=== PATIENT | female | born 1940 | race Caucasian/White ===

== ENCOUNTER 2019-02-13 09:38 | Inpatient (IN) | payer OTHER ==
[~2019-02-13] VITALS: Ht 172.7 cm; Wt 73.5 kg
[2019-02-13] MEDS ORDERED: VASOTEC5 MG PO (14:04)
[2019-02-13] MEDS ORDERED: OXTELLAR XR300 MG PO (14:04)
[2019-02-13] MEDS ORDERED: OLANZAPINE15 M1 PO (14:05)
[2019-02-13] MEDS ORDERED: L-METHYLFOLATE1 EAC4 PO (14:06)
[2019-02-13] MEDS ORDERED: DESYREL150 MG PO (14:07)
[2019-02-13] MEDS ORDERED: LITHIUM CARBON150 MG PO (14:09)
[2019-02-13] MEDS ORDERED: FISH OIL 1,001000 M3 PO (14:10)
[2019-02-13] MEDS ORDERED: SLOW FE142 MG PO (14:10)
[2019-02-13] MEDS ORDERED: B-125000 MC1 PO (14:11)
[2019-02-13] MEDS ORDERED: CENTRUM SILVER1 EAC6 PO (14:12)
--- NOTE | 2019-02-13 14:44 | NUR ---
WHITE 78 YEAR OLD WHITE FEMALE ADMITTED FOR MANIC DEPRESSIVE BEHAVIORS. SHE HAS BEEN EXHIBITING RECKLESS BEHAVIORS, DRAMATIC MOOD CHANGES, DISTURBED SLEEP, LOCKED HER OUTSIDE THE HOUSE AND WOULD NOT LET HIM IN THE HOUSE, ON THE WAY TO THE HOSPITAL SHE THOUGHT SHE WAS AN ANIMAL AND STARTED CRYING, IN THE ED SHE STARTED MAKING RAINBOW AND FIGURE 8 MOTIONS WITH HER HANDS. SHE STARTED BACKING OUT OF THE DRIVEWAY IN THEIR CAR (HER AND HER 'S) IN THE CAR SHE NORMALLY DOES NOT DRIVE. HER PSYCHIATRIST CHANGED SEVERAL OF HER MEDICATIONS, BUT SHE CONTINUES TO DECOMPENSATE. SHE DOES STRUGGLE WITH SOME THOUGHT BLOCKING. SHE TRIED TO TAKE A SHOWER WITH HER CLOTING ON. IS SUPPORTIVE AND THEY HAVE BEEN OVER 30 YEARS. SHE STATES SHE HAD AN AND A TUBALIGATION IN 1980, A TONSELLECTOMY AT 8 Y/O, BREAST CANCER IN 2006 AND A LEFT BREAST REMOVAL. SHE HAS A PROSTHESIS FOR THIS. SHE STATES SHE HAS BEEN HOSPITALIZED AT LEAST 5 TIMES FOR MANIC DEPRESSION SINCE SHE WAS IN HER 20'S. SHE HAS A HISTORY OF HTN. SHE STATES SHE LIKES TO EAT GLUTEN FREE FOODS BUT DENIES SENSITIVITY TO THIS. SHE HAS AN ALLERGY TO AMPICILLIN. SHE STATES SHE HAS HAD THE FLU SHOT THIS YEAR ABOUT 1 OR 2 WEEKS AGO AND HAD THE PNEUMONIA SHOT A YEAR OR TWO AGO. SHE IS AMBULATORY AND CAN CARE FOR HERSELF. SHE DENIES A HISTORY OF FALLING. SHE DENIES RECENT LOSSES. HER FATHER HAD A HISTORY OF MENTAL ILLNESS AND WAS A PATIENT OF DR. ALCANTARA.
[2019-02-13 15:01] VITALS: BP 147/88
[2019-02-13 20:29] VITALS: BP 115/61
--- NOTE | 2019-02-14 03:24 | NUR ---
Care assumed of patient at 1915: Patient alert and oriented x4. Patient seated in day room with other peers at start of shift. Patient appears to be interacting well with staff and peers. Patient pleasant and cooperative. Patient presents with flat affect, appears sad. Patient denies pain or discomfort. Denies SI/HI/AH/VH. No s/s of delusional or paranoia behaviors. Patient ate 100% HS snack. Took HS medication whole without difficulty. Patient had one episode of bladder incontinence. Patient slept fairly well for a couple hours then was awake. Patient crying, anxious, mumbling words. Patient did state "I'm a failure". Patient reported that she couldn't sleep. Patient pacing around her room. Some bizarre behavior observed of patient putting linens on the floor and stepping around her room on the linens. Patient required re-direction due to fall risk. Nurse sat one on one with patient to speak with her but she was not able to calm down. LINCOLN Lopez, notified. Order obtained for Seroquel 25mg po 1x dose. Medication administered at 0107. Patient was able to fall asleep shortly thereafter and has been resting quietly since.
--- NOTE | 2019-02-14 07:30 | NUR ---
Assumed care of patient this am. Patient alert and oriented. Patient states that she needs her cell phone to be decoded, that hidden messages are inside. Vital signs stable, breath sounds clear, bowel sounds present, no visible wounds. Patient was in the mileu sitting at a table resting this am during the assessment. Patient has a good appetite and takes medications whole. Patient participated in group and exercised her legs playing kickball with the [employer] ball.
[2019-02-14 08:00] VITALS: BP 117/75
--- NOTE | 2019-02-14 09:03 | NUR ---
SW called and left a VM for spouse. This inlcuded information baout visiting hours, family meeting and information needed.
[2019-02-14 10:01] VITALS: BP 117/75
--- NOTE | 2019-02-14 11:41 | NUR ---
PT UP AD NOEMI AROUND THE [facility] UNIT. PT OBSERVED PERFORMING TXS IN ACTIVITY ROOM AND GAIT AROUND THE HALLS WITHOUT DIFFICULTY. RN CONFIRMS PT NOT CURRENTLY HAVING DIFFICULTY WITH MOBILITY. WILL DEFER P.T. EVAL AT THIS TIME PT APPEARS TO BE MOBILIZING AT BASELINE AND DOES NOT NECESSITATE THE SERVICES OF P.T. AT THIS TIME.
--- NOTE | 2019-02-14 13:22 | NUR ---
Assess due to nutrition screening risk identified for unintentional wt loss and decreased appetite. Admit to [facility] unit for psychosis, depression. Able to visit with pt this afternoon. States really enjoyed breakfast and able to provide food preferences. Feels she has lost 20 lb x yr=10%, but felt it was related to following the gluten free diet her was on. She does not want any diet restrictions while here and has a regular diet ordered. Will follow wt and intake trends during admission. On MVI, B12, and FeS04 supplementation. Low nutrition risk at this time
--- NOTE | 2019-02-14 15:31 | NUR ---
SW met with pt to complete the psycho social, and she described a 30 plus year struggle with mental illness. She has a supportive and understanding spouse. Pt is willing to be compliant wiht treatment and would like increased outpt therapy. Sw later met with pt and her spouse. he will come back for the fmaily meeting on Thu, and has some of his own medical concerns. Their daughter Marsha is a good resource to assist with d/c planning. Spouses cell phone [phone] is a btter number to get in touch with him.
--- NOTE | 2019-02-14 17:21 | EKG ---
[place] [address] [address] [place] [address] ELECTROCARDIOGRAM REPORT Name: ANTWON BUNCH Room #: [facility] ADM IN M.R.#: [id number] Admission: 02/13/19 Attend Phys: Mono Araujo DO Discharge: Date of : 44 Report #: [id number] THIS REPORT FOR: //name// [facility] Test Date: 2019-02-14 Test Time: 16:11:39 Pat Name: ANTWON BUNCH Department: Room: [facility] Gender: F Spinner Continuous: Adry MONTOYA : 1940 Requested By: Anne Giraldo Order Number: [id number] MD: Avel Isabel Measurements Intervals [place] Rate: 59 P: 61 [place]: 175 QRS: -53 QRSD: 141 T: 2 QT: 472 QTc: 468 Interpretive Statements Sinus rhythm RBBB and LAFB Left ventricular hypertrophy No previous ECG available for comparison Electronically Signed On 02-14-2019 17:21:27 CDT by Avel Isabel [email or web address] <ELECTRONICALLY SIGNED> By: Avel Isabel MD, [facility] 02/14/19 1721 10 10 Avel Isabel MD, FACC /EPI
[2019-02-14 20:27] VITALS: BP 121/76
--- NOTE | 2019-02-14 23:13 | NUR ---
Care assumed of patient at 1915: Patient sitting in day room at start of shift. Interacting well with staff and peers. Patient alert and oriented x4, pleasant and cooperative. Patient ate 100% HS snack. Took HS medication whole without difficulty. As peers started to go to bed, patient became more anxious. Patient impulsive and restless. Patient holding her arms out trying to make circles. Patient attempting to hug others and required re-direction on personal boundaries. Patient would lay in bed and appear to be resting then would quickly walk down the jean to the exit doors. Patient got out of bed once and walked up close to nurse stating "I can't". Upon asking patient what she couldn't do, she stated "my body won't stop moving". Patient was seated at one point in the day room, moving her arms in circles, breathing heavily, appeared anxious. Then patient stopped, looked at nurse and stated "I don't like this show" referring to the TV that was on. Patient has mentioned wanting her cell phone x1 so she could "de-code" messages that were sent to her. Patient provided busy tasks when she focuses on this, which has been effective. Patient denies SI/HI/AH/VH. Patient continues to be restless and fixated on different subjects. Labile, expansive. Patient was provided Seroquel PRN for insomnia.
[2019-02-15 09:08] VITALS: BP 138/80
--- NOTE | 2019-02-15 09:46 | NUR ---
0715: Report rec from noc shift, care assumed. [id number]: Ambulatory independently in room, jean and to DR, gait weak, uses wall rail for assist. Feeds self, appetite good, taking liquids w/o difficulty. Takes meds whole w/o difficulty, meds reviewed with pt, pt paranoid towards staff, food and medications, paranoia improved with visiting with pt and reassurance. Attending 0900 therapy group, participation noted, cooperative with staff, no impulsive behavior observed at this time. Reports constipation, no results from MOM x2, will consult with hospitalist for tx regimen.
--- NOTE | 2019-02-16 00:03 | NUR ---
Pt sitting in day room watching tv, swinging arms and legs like scissors. Pt interacting with female peers. Pt was sleeping in bed with her head at the feet. Pt awakened when male peer was acting out. Pt came from her room to the jean where pt was, she had a foam noodle and was glaring at the nurse. Pt then gave the noodle to the male peer. Pt was redirected to keep the noodle and she did and walked into day room to sit at table. Security arrived on unit and pt was following security and stating to security that a nurse was drinking on the job. Pt wandered into a male peers room while staff was providing cares. Pt redirected to return to her room. Pt stated I am here to receive treatments. Pt has been pacing the jean from room to day room. Pt coming to nurses station asking if we have contacted the dr and finished our charting. Pt directed staff to remove a towel from her floor. Dr Araujo notified of restless and agitatied behaviors and new order obtained.
[2019-02-16 00:08] VITALS: BP 148/78
--- NOTE | 2019-02-16 04:14 | NUR ---
Pt frequently awakening coming to nurses station to stare at nurses with scowl and at times going into day room to sit with tech. Pt then returns to bed. Pt did sleep in elevated extra bed in room, bed was lowered to safe position. Pt has frequently been observed standing behind her bathroom door and she threw her paper trash sack into the jean.
[2019-02-16 06:21] LABS: CALCIUM 9.5 mg/dL (8.5-10.1); CREATININE 1.4 mg/dL (0.6-1.0); POTASSIUM 4.7 mmol/L (3.5-5.1)
[2019-02-16 08:00] VITALS: BP 159/91
--- NOTE | 2019-02-16 09:49 | NUR ---
Assumed care of patient this am. Patient in bed, sleeping. Patient denies pain. Patient assessment done at the bedside. Breath sounds clear, bowel sounds present. Vital signs stable. Patient adherent with medications. Patients affect sad. Patient ambulates without assistance.
[2019-02-16 11:17] VITALS: BP 159/91
[2019-02-16 20:08] VITALS: BP 142/71
--- NOTE | 2019-02-16 23:52 | NUR ---
Care assumed of patient at 1915: Patient alert and oriented x3 with occasional confusion noted. Patient pleasant and cooperative with nursing assessment. Denies pain or discomfort. Interacting well with staff and peers. Ate 100% HS snack. Took HS medication without difficulty. As other peers started to go to bed, patient became increasingly anxious. Patient intrusive, running up to the nurses station, talking loudly. Patient visualized standing in the doorway of her room, moaning, taking several deep breaths. When asked what was wrong, patient would state "I don't know". When asked to go back to bed, patient did so without concern. Patient ran up to the nurses station at one point and stated "I just remembered". Patient stated she needed the phone because she has to call Sheldon. She states that Sheldon brought her here and will be able to take her home tonight. Patient educated that transportation will be arranged once the doctor feels she is ready to be discharged. Patient said "OK" then walked briskly back to her room. Patient has been restless and has had difficulty falling asleep this evening. Patient visualized laying sideways and backwards in bed. Denies pain or discomfort. Primarily appears restless and anxious. Denies SI/HI/AH/VH. Bizarre thoughts and behaviors observed. Labile mood.
[2019-02-17 09:10] VITALS: BP 135/83
[2019-02-17 10:51] VITALS: BP 135/83
--- NOTE | 2019-02-17 11:06 | NUR ---
ASSUMED CARE AT 0700 TODAY. PT. UP, SHOWERED AND THEN CAME INTO THE DINING ROOM. SHE IS NEATLY DRESSED. SHE TOOK HER MEDICATIONS WITHOUT DIFFICULTY. SHE ATTENDED [id number] MEETING AND DID SOME PARTICAPATION. SHE THEN RETIRED TO HER ROOM COMING OUT OCCASIONALLY. AT THIS TIME SHE HAS A HOSPITAL GOWN ON IF IT WAS A HOUSECOAT. SHE APPEARD DEPRESSED THIS MORNING. SHE SPENT SOME TIME TALKING WITH NURSE AND IT SEEMED HER MOOD IMPROVED SOME.
[2019-02-17 19:52] VITALS: BP 154/80
--- NOTE | 2019-02-18 00:28 | NUR ---
Care assumed of patient at 1915: Patient resting in bed at start of shift. Patient pleasant and cooperative with assessment. Patient denies pain or discomfort. Declined HS snack. Took HS medication whole without difficulty. Denies SI/HI/AH/VH. No aggression or agitation observed. Alert and oriented x4. Patient had minimal bizarre behaviors/statements this shift. Patient did make a couple statements regarding her and contacting an "IT person" but quickly stopped herself. She stated "I know I'm not making sense". Patient did get out of bed quickly and make impulsive movements. It is believed to be that she just needed to use the bathroom. Patient has been resting quietly this shift.
--- NOTE | 2019-02-18 07:30 | NUR ---
Assumed care of patient this am. Patient in good spirits. Patient affect relaxed. Patient ambulates with out assistence. Patient adherent to scheduled medications. Patient takes medications whole. Patient denies pain. Patient is continent of bowel and bladder. Patient showered this am and put on a clean set of clothes.
[2019-02-18 08:00] VITALS: BP 134/77
[2019-02-18 08:28] VITALS: BP 134/77
[2019-02-18 12:34] LABS: CALCIUM 9.9 mg/dL (8.5-10.1); CREATININE 1.2 mg/dL (0.6-1.0); POTASSIUM 4.4 mmol/L (3.5-5.1)
--- NOTE | 2019-02-18 14:45 | NUR ---
Date of Admission: 02/13/19 Date of Activity Therapy Assessment: 02/16/19 Activity Goal: Manage anxiety symptoms Initial Goal: 2 Group activities/day Weekly progress towards goal: Achieving current goals Group participation level: Full Behaviors observed: Patient participates in every group offered to her. She presents in a serious demeanor and exhibits a moderate level of anxiety in which she verbalizes. Patient is able to request independent leisure tools to help cope with her anxiety and has done so during her stay so far. Plan: No change towards goal
[2019-02-18 20:44] VITALS: BP 145/85
--- NOTE | 2019-02-19 04:03 | NUR ---
ASSESSMENT: PT REMAIN ALERT AND ORIENT TIMES THREE. UP AD NOEMI WITH A STEADY GAIT. WAS TEARFUL AT TIMES ABOUT THINKING THAT ANOTHER PT WHO WAS SCREAMING AND CRYING OUT FOR LONG PERIODS OF TIMES WAS GOING TO BE HER ROOMMATE. ONCE PT FOUND OUT THAT THE OTHER PT WAS NOT GOING TO BE HER ROOM MATE, SHE SETTLED DOWN AND WENT TO SLEEP. DENIES PAIN, SOB AND N/V. TAKES MEDS WHOLE WITH WATER WITHOUT ISSUE. POSSIBLE DC ON THURSDAY OR THURSDAY BACK TO HOME WITH . GOOD PROGRESS, WILL CONTINUE TO MONITOR.
--- NOTE | 2019-02-19 08:57 | NUR ---
0715: Report rec from noc shift, care assumed.
[2019-02-19 20:00] VITALS: BP 123/64; BP 140/70
[2019-02-19 20:11] LABS: CALCIUM 9.9 mg/dL (8.5-10.1); CREATININE 1.5 mg/dL (0.6-1.0); POTASSIUM 4.3 mmol/L (3.5-5.1)
--- NOTE | 2019-02-19 23:34 | NUR ---
PT AMBULATING IN SHOOK, WALKING IN AND OUT OF ROOM AND DAY ROOM. GREEN AND TENSE AFFECT AT TIMES. PT COMPLIANT WTIH MEDICATION AND LAB DRAW. PT DECLINED SNACK. PT NOT ENGAGING IN CONVERSATION WITH STAFF, POOR EYE CONTACT.
--- NOTE | 2019-02-19 23:50 | NUR ---
Rich AMBROSIO CALLED RE LABS DRAWN AT 1900, NO RESULTS AT THIS TIME.
[2019-02-20 09:03] VITALS: BP 124/72
--- NOTE | 2019-02-20 11:48 | EKG ---
[place] [address] [facility] [place] [address] ELECTROCARDIOGRAM REPORT Name: ANTWON BUNCH Room #: [facility] ADM IN M.R.#: [id number] Admission: 02/13/19 Attend Phys: Mono Araujo DO Discharge: Date of : 44 Report #: [id number] THIS REPORT FOR: //name// [facility] Test Date: 2019-02-19 Test Time: 14:08:28 Pat Name: ANTWON BUNCH Department: Room: [facility] Gender: F Hospital Plan Administrator: NEENA : 1940 Requested By: Anne Giraldo Order Number: [id number] MD: Avel Isabel Measurements Intervals [place] Rate: 72 P: 37 [place]: 213 QRS: -56 QRSD: 140 T: 10 QT: 455 QTc: 499 Interpretive Statements Sinus rhythm with atrial prematurity his Borderline prolonged MO interval RBBB and LAFB Left ventricular hypertrophy Compared to ECG 02/14/2019 16:11:39 Atrial premature complexes now present Electronically Signed On 02-20-2019 11:48:37 CDT by Avel Isabel [email or web address] <ELECTRONICALLY SIGNED> By: Avel Isabel MD, FACC 02/20/19 1148 1408 1408 Avel Isabel MD, FAC /EPI
--- NOTE | 2019-02-20 11:53 | NUR ---
BLUNTED AFFECT-POOR EYE CONTACT-NO NOTEDSPONTANEOUS SMILING.EXPRESSION/CONVERSATION. SITS AWAY FROM PEERS WHILE IN DAYROOM-DOES ATTEND GROUPS WITH PROMPTING AND WILL RESPOND WITH PROMPTING 1-2 WORD TERSE RESPOMSES. DENIES SI/SH/HI. DENIES ACUTE ANXIETY/FEELINGS OF BEPRESSSION OR BEING "DOWN" DENIES C/O PAIN/DISCOMFORT. GAIT STEADY WITHOUT ASSISTIVE DEVICES
--- NOTE | 2019-02-20 15:04 | NUR ---
PT. CALLED THIS NURSE ASIDE AND TALKED TO ME ABOUT THE NURSE THAT WAS HERE ON THE DAY SHE WAS ADMITTED WAS DRUNK. PT. WANTED TO KNOW IF THIS WAS REALITY OR NOT. THIS RN INFORMED HER THIS WAS NOT REALITY THIS RN HAD ADMITTED HER AND I DO NOT DRINK, AND NO ONE ON THE CORE OVEN TENDER WAS SOBER AT WORK ALSO ON THAT DAY. PT. ALSO STATED THAT A FEATHER RENOVATOR LAST NIGHT TOLD HER THAT HER NAME WAS TADEO CAMARILLO. SHE ASLO WAS INFROMED THIS WAS MORE THAN LIKELY NOT REAL. SHE STATED SHE FEELS SHE IS DOING BETTER AND THAT SHE BELIEVES SHE CAN TAKE CARE OF HERSELF IF AND WHEN SHE RETURNS HOME.
[2019-02-20 15:48] LABS: CALCIUM 10.2 mg/dL (8.5-10.1); CREATININE 1.5 mg/dL (0.6-1.0); POTASSIUM 4.1 mmol/L (3.5-5.1)
[2019-02-20 19:54] VITALS: BP 160/80
--- NOTE | 2019-02-20 23:45 | NUR ---
Care assumed of patient at 1915: Patient laying in bed at start of shift. Patient easily arousable. Pleasant and cooperative with nursing assessment. Patient is impulsive with body movements. Patient will sit up and walk quickly to her doorway. Needs reminders that everything is OK and to slow down. Patient states she is sorry but that she can't explain why she was getting up. Patient appears to be anxious at times. Denies SI/HI/AH/VH. No specific delusional or paranoia behaviors observed. Behaviors displayed are primarily bizarre at times. Patient is sleeping backwards in bed because she likes to see in the hallway. States she doesn't know why, she is not scared, but that is what she wants to do. Denies pain or discomfort. Took HS medication whole without difficulty. Declined HS snack. Patient noted to have increased thirst this shift. Patient has drank 2 full cups of water, approximately 480cc. States that the doctor told her she needed to drink more water. Large water mug filled for her this evening. Patient has been resting quietly in bed this evening.
[2019-02-21 08:09] VITALS: BP 144/75
--- NOTE | 2019-02-21 10:56 | NUR ---
Followup: eating >75% most meals, wt is stable at 162 lb. Remains on mvi, ferrous sulfate, and B12 supplementation. Low nutrition risk
--- NOTE | 2019-02-21 18:31 | NUR ---
0715: Report rec from [facility] shift, care assumed. [id number]: Ambulatory independently in room, halls and to DR, gait steady. Feeds self, appetite good, takes meds whole w/o difficulty. Mood is pleasant and cooperative,brief episodes of paranoia noted. Attends 0900 therapy group, participation noted. Oriented to name and place.
[2019-02-21 20:20] VITALS: BP 136/71
--- NOTE | 2019-02-21 23:21 | NUR ---
PT RESTING IN BED UPON ARRIVAL TO SHIFT. AWAKENED FOR SNACK AND HS MEDS AND RETURNED TO BED. PT SMILING GOOD EYE CONTACT, BUT MINIMAL VERBAL RESPONSE TO STAFFS CONVERSATION.
[2019-02-22 09:04] VITALS: BP 135/78; BP 162/83
--- NOTE | 2019-02-22 13:11 | NUR ---
PATIENT WAS UP AND OUT IN THE BATHROOM WHEN CARE ASSUMED, CAME OUT TO THE DAY ROOM AFTER MORNING ADL PERFORMED. PATIENT TOOK ALL MEDICATION WHOLE WITHOUT DIFFICULTY. PATIENT IS EATING MEALS AND DRINKING FLUID WELL. PATIENT DENIES SUICIDAL/HOMICIDAL IDEATIION. PATIENT RATED DEPRESSION 8/10, ANXIETY 9/10. PATIENT DENIES AUDDITORY/VISUAL HALLUCINATION. AFFECT IS FLAT, MOOD IS DEPRESSED, NO SIGN OF ACUTE DISTRESS NOTED AT THIS TIME, WILL MONITOR FOR SAFETY.
[2019-02-22 20:03] VITALS: BP 132/75
--- NOTE | 2019-02-23 03:01 | NUR ---
Care assumed of patient at 1915: Patient seated in day room at start of shift. Patient alert and oriented to person, place and situation. Patient forgetful on current time. Patient calm, pleasant and cooperative. Patient declined HS snack. Took HS medication whole without difficulty. Patient interacting well with staff and peers. Patient impulsive at times but is re-directable easily. Patient retired to bed early and was intrusive and anxious when she approached nurse asking about her bedtime medications. Patient re-directed to take a deep breath and she would receive her medication. Patient easily re-directed. Patient denies pain or discomfort. Denies SI/HI/AH/VH. No s/s of delusional or paranoia behaviors. No aggression shown. Patient reports that she is excited about being able to go home tomorrow. Patient has been resting quietly this shift with no further issues to report.
[2019-02-23 09:08] VITALS: BP 151/72
[2019-02-23 09:22] VITALS: BP 151/72
--- NOTE | 2019-02-23 09:26 | NUR ---
0700: Assumed care this AM.Pt alert &oriented x 3, able to ambulate around. Pt took breakfast and morning medication without any issues. Good appetite. Pt calm and relaxed in the chair. Attended morning 0900 therapy group, pleasant and full participation. Cooperative. plan: discharge today. Will continue with plan of care.
--- NOTE | 2019-02-23 09:42 | NUR ---
Sw has called pt's spouse several times yesterday and today to confirm that she is discharging. Unable to leave .
[2019-02-23] MEDS ORDERED: OXCARBAZEPINE300 MG PO (11:52)
[2019-02-23] MEDS ORDERED: TRAZODONE 150150 M1 PO (11:53)
[2019-02-23] MEDS ORDERED: ZYPREXA 5 MG TAB5 M2 PO (11:54)
[2019-02-23] MEDS ORDERED: B-12500 MCG PO (11:55)
[2019-02-23 11:59] VITALS: BP 151/72
--- NOTE | 2019-02-23 12:59 | NUR ---
1300: Dc'd ambulatory with , scripts phoned to [facility] by Dr. Araujo, inventory sheet checked and verified with pt. Dc'd to private vehicle with spouse, accomp by [facility] staff.
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
== END 2019-02-23 13:00 | disposition home or self-care (01) | DRG 885 ==
LOC: SBH 09:38
PROVIDERS: Nurse Practitioner Psychiatric/Mental Health; ADMIT Psychiatry & Neurology Psychiatry
DX: F31.9 Bipolar disorder, unspecified (principal); F20.9 Schizophrenia, unspecified; K59.00 Constipation, unspecified; I10 Essential (primary) hypertension; Z79.899 Other long term (current) drug therapy; Z88.1 Allergy status to other antibiotic agents; Z85.3 Personal history of malignant neoplasm of breast; Z81.8 Family history of other mental and behavioral disorders
CPT/HCPCS: 10880